=== PATIENT | male | born 1990 | race Caucasian/White ===

== ENCOUNTER 2016-09-24 11:51 | Emergency (ER) | payer SELFPAY ==
[~2016-09-24] VITALS: Ht 182.9 cm; Wt 75.0 kg
[~2016-09-24 11:51] MED LIST: HYDR-3533 PO; MEDR4PAK3 PO
[2016-09-24 11:57] VITALS: BP 169/87; PULSE 105; RESP 18; TEMP 97.8; O2SAT 95
--- NOTE | 2016-09-24 12:06 | PD ---
HPI . Drug intoxication Chief Complaint: Alcohol/Drug Intoxication Time Seen by Provider: 12:03 Travel History International Travel<30 days: No Contact w/Intl Traveler<30days: No Traveled to known affect area: No History of Present Illness HPI Voice of year-old male with Crohn's disease and history of polysubstance abuse here with heroin intoxication. Apparently patient was using heroin with significant other and she overdosed. He took 30 cc of heroin and had some uncontrolled movements of his muscles. He was given 0.4 mg of Narcan and seems to be improved. He had maintained a GCS of 15 throughout all this. He has no specific complaints. He tells me he is very embarrassed about his drug usage. He was initially tachycardic upon arrival. [facility] Past Medical History Gastrointestinal Disorders: Yes (CROHN'S DISEASE) Past Surgical History Abdominal Surgery: Yes (HERNIA) Tympanostomy Tube: Yes (AGE 1 BILATERAL MYRINGOTOMY) Social History Alcohol Use: No (QUIT) Tobacco Use: No Substance Use: Yes (OCCASIONAL MARIJUANA) Allergies-Medications (Allergen,Severity, Reaction): Coded Allergies: Suprax (Verified Adverse Reaction, Unknown, 09/24/16) Reported Meds & Prescriptions Reported Meds & Active Scripts Active No Active Prescriptions or Reported Medications Review of Systems General / Constitutional: No: Fever Eyes: No: Visual changes HENT: No: Headaches Cardiovascular: No: Chest Pain or Discomfort Respiratory: No: Shortness of Breath Gastrointestinal: No: Abdominal Pain Genitourinary: No: Dysuria Musculoskeletal: No: Pain Skin: No Rash Neurologic: No: Weakness Psychiatric: No: Depression Endocrine: No: Polydipsia Hematologic/Lymphatic: No: Easy Bruising Physical Exam Narrative GENERAL: AAO x 3, no acute distress, Well-nourished, well-developed patient. SKIN: Warm and dry. No visible rashes or bruising. HEAD: Normocephalic and atraumatic. EYES: No scleral icterus. No injection or drainage. EOM intact, PERRL but delayed, ENT: No nasal drainage noted. Mucous membranes pink. Airway patent. NECK: Supple, trachea midline. No JVD. CARDIOVASCULAR: Regular rate and rhythm without murmurs, gallops, or rubs. RESPIRATORY: Breath sounds equal bilaterally. No accessory muscle use. No rhonchi or rales. GASTROINTESTINAL: Abdomen soft, non-tender, nondistended. EXTREMITIES: No cyanosis or edema. BACK: No obvious deformity. NEURO: CN II-12 intact, measurement psychologist strength normal b/l, UE and LE 5/5, no focal deficits PSYCH: AAO x 3, normal affect. Data Data Last Documented VS Vital Signs Date Time Temp Pulse Resp B/P Pulse Ox O2 Delivery O2 Flow Rate FiO2 09/24/16 12:05 Room Air 09/24/16 11:57 97.8 105 18 169/87 95 Orders Electrocardiogram (09/24/16 ) [facility] Medical Decision Making Medical Screen Exam Complete: Yes Emergency Medical Condition: Yes Medical Record Reviewed: Yes Differential Diagnosis Heroine intoxication, heroin addiction, polysubstance abuse Narrative Course 26 yr old male here via [facility] due to twitching after using heroin. EKG reviewed. He did not have any issues with being unresponsive. He apparently had some twitching and was given 0.4 mg Narcan. He is feeling well and concerned about his girlfriend who actually overdosed. She is in another Pod being seen. I discussed the case with my attending Dr. Green. Patient cleared for discharge. Patient verbalized understanding of instructions, questions were answered, and thanked me for their care. I advised them if their condition worsens, please return to the nearest emergency room for further care. Diagnosis Primary Impression: Heroin abuse Additional Instructions: Try to enroll in a rehabilitation to get off Heroin. Med/Other Pt SpecificInfo: No Change to Meds Scripts No Active Prescriptions or Reported Meds Disposition: 01 DISCHARGE HOME Condition: Stable Ladan Gardner Sep 24, 2016 12:06
--- NOTE | 2016-09-25 16:22 | EKG ---
Date Performed: 09/24/2016 Time Performed: 12:09:26 PTAGE: 26 years EKG: Sinus rhythm WITH SHORT WY INTERVAL BORDERLINE ECG NO PREVIOUS TRACING DOCTOR: Jevon Tim Interpretating Date/Time 09/25/2016 16:19:39
== END 2016-09-24 12:43 | disposition home or self-care (01) ==
LOC: NEPE 11:51
DX: F11.10 Opioid abuse, uncomplicated (principal); K50.90 Crohn's disease, unspecified, without complications
CPT/HCPCS: 93005; 99283